=== PATIENT | female | born 1990 | race Caucasian/White ===

== ENCOUNTER → 2018-04-19 15:51 | Outpatient (CLI) | payer MEDICAID, SELFPAY ==
[2018-04-25 07:08] LABS: HPV Reflexed? NOT INDICATED
== END ==
PROVIDERS: Visit Provider Obstetrics & Gynecology
DX: Z12.4 Encounter for screening for malignant neoplasm of cervix (principal)
CPT/HCPCS: 88175; G0145

== ENCOUNTER → 2018-07-25 13:38 | Outpatient (CLI) | payer MEDICAID, SELFPAY ==
[2018-07-25 16:48] LABS: Chlamydia Trachomatis by PCR Negative (Negative); Neisserai gonorrhoeae by PCR Negative (Negative); Probe Check PASS; Sample Adequacy Control PASS; Specimen Processing Control PASS
== END ==
PROVIDERS: Visit Provider Obstetrics & Gynecology
DX: Z11.3 Encounter for screening for infections with a predominantly sexual mode of transmission (principal)
CPT/HCPCS: 87491; 87591

== ENCOUNTER → 2018-08-15 11:49 | Outpatient (CLI) | payer MEDICAID, SELFPAY ==
[2018-08-15 13:41] LABS: Hematocrit 38.6 % (37-47); Hemoglobin 13.1 g/dl (12.0-15.0); Mean Corp Hgb Conc 33.9 g/gl (32-36); Mean Corpuscular Hgb 30.3 pg (27.0-32.0); Mean Corpuscular Volume 89.4 fL (81-99); Mean Platelet Vol. 10.4 fl (6.2-12.0); Platelet Count 248 K/mm3 (150-450); RBC Distribution Width CV 13.1 % (11.6-14.6); RBC Distribution Width SD 42.1 fl (35.1-43.9); Red Blood Count 4.32 M/mm3 (4.2-5.4); White Blood Count 8.1 K/mm3 (4.4-11.0)
[2018-08-15 13:42] LABS: Absolute Lymphocyte Count 1.85 X10^3/ul (0.83-4.51); Absolute Neutrophil Count 5.8 X10^3/uL (2.0-7.7); Basophil# 0.02 X10^3/uL; Basophil% 0.2 % (0-1); Eosinophils% 1.2 % (0-5); Lymphocyte # 1.85 X10^3/ul (4.0); Lymphocyte % 22.8 % (19-41); Monocyte# 0.31 X10^3/uL; Monocyte% 3.8 % (0-10); Neutrophil # 5.81 X10^3/uL (2.7-7.7); Neutrophil % 71.8 % (47-70)
[2018-08-15 13:43] LABS: POSITIVE COUNT NO; POSITIVE DIFFERENTIAL NO; POSITIVE MORPHOLOGY NO
[2018-08-15 13:55] LABS: Color, Urine Yellow (Yellow); Glucose, Dipstick Normal (Normal); Ketone-Dipstick Negative (Negative); Leukocyte Esterase-Dipstick Negative /ul (Negative); Nitrite-Dipstick Negative (Negative); Occult Blood-Urine Negative /ul (Negative); Protein-Dipstick Negative (Negative); Specific Gravity, Urine 1.015 (1.002-1.030); Urine Bilirubin Dipstick Negative (Negative); Urine Clarity Clear (Clear); Urine Urobilinogen Normal (Normal)
[2018-08-15 14:10] LABS: Thyroid Stim Hormone (TSH) 1.24 uIU/mL (0.358-3.74)
[2018-08-15 14:49] LABS: HIV - WCH Non-Reactive (Nonreactive); Rubella IgG 173.6 IU/mL
[2018-08-16 11:20] LABS: Toxoplasma Gondii IgM < 3.0 AU/mL (0.0-7.9)
[2018-08-16 11:21] LABS: HEPATITIS B SURFACE AG Negative (Negative); Hep C Antibodies <0.1 s/co ratio (0.0-0.9); Toxoplasma Gondii IgG < 3.0 IU/mL (0.0-7.1)
[2018-08-18 02:33] LABS: Prenatal RPR NONREACTIVE (NONREACTIVE)
== END ==
PROVIDERS: Visit Provider Obstetrics & Gynecology
DX: Z34.81 Encounter for supervision of other normal pregnancy, first trimester (principal)
CPT/HCPCS: 36415; 81002; 84443; 85025; 86703; 86762; 86777; 86778; 86803; 87340

== ENCOUNTER → 2018-12-19 09:05 | Outpatient (CLI) | payer MEDICAID, OTHER, SELFPAY ==
[2018-12-19 10:42] LABS: Glucose Challenge Gest 1H 50g 74 mg/dL (70-140); Hematocrit 33.2 % (37-47); Hemoglobin 11.1 g/dl (12.0-15.0); Mean Corp Hgb Conc 33.4 g/gl (32-36); Mean Corpuscular Hgb 30.4 pg (27.0-32.0); Mean Platelet Vol. 9.2 fl (6.2-12.0); Platelet Count 195 K/mm3 (150-450); RBC Distribution Width CV 13.6 % (11.6-14.6); RBC Distribution Width SD 44.7 fl (35.1-43.9); Red Blood Count 3.65 M/mm3 (4.2-5.4); White Blood Count 7.3 K/mm3 (4.4-11.0)
[2018-12-19 10:44] LABS: Scan Indicated on CBC? Y/N NO
== END ==
PROVIDERS: Visit Provider Obstetrics & Gynecology
DX: Z34.83 Encounter for supervision of other normal pregnancy, third trimester (principal)
CPT/HCPCS: 36415; 82950; 85027

== ENCOUNTER → 2019-02-13 | Outpatient (CLI) | payer OTHER, MEDICAID, SELFPAY | END | disposition home or self-care (01) | PROVIDERS: Visit Provider Obstetrics & Gynecology | DX: Z36.85 Encounter for antenatal screening for Streptococcus B (principal) | CPT/HCPCS: 87081 ==

== ENCOUNTER 2019-03-08 06:30 | Inpatient (IN) | payer OTHER, MEDICAID, SELFPAY ==
--- NOTE | 2019-03-08 07:31 | PCM.HPOB.BLA ---
History and Physical Date of Admission: 03/08/19 OB HISTORY AND PHYSICAL EXAMINATION History of this : 28 yo female Ab0 with EDC 03/12/2019 by 10 weeks 1 day Ultrasound, presents to Labor and Delivery for elective induction of labor due to maternal discomfort, at 39 3/7 wk EGA. care remarkable for 1.) BREAST PUMP RX GIVEN 01/02/19 2.) Changing cat litter. Encouraged to avoid Pertinent Past Medical History: None Allergies: NKDA Medications: During - Flintstones Complete chewable tablet Review of Systems: Back pain, pelvic pain due to . PHYSICAL EXAMINATION General Appearance: 28 yo female in no acute distress Vital Signs: AF, VSS Heart: RRR without rubs or gallops Lungs: CTA x 2 Breasts: deferred Abdomen: gravid Pelvis: Cervix: 2/75/-2 AROM scant pink dischg noted. Presentation: cephalic Fetus: Size: AGA Movement: present Heart: 140-150s avg variability. Accels to 170s. Irreg UCs q 8 min or so. with irritability also noted. Impression /Plan: Intrauterine . 39 3/7 wk elective induction due to maternal discomfort. Admit. AROM Pitocin Watch progress, and descent. Anticipate . See Progress Notes for Changes: Physician's Signature: Date:
[2019-03-08] MEDS: Oxytocin 30 units/NS 500 ml 30 UNITS/500 ML IV.SOLN IV (07:37)
[2019-03-08] MEDS: Lactated Ringers 1,000 ML 50 ML IV ×3 (07:37→14:26)
[2019-03-08 07:42] VITALS: BMI 25.9
[2019-03-08 07:42] LABS: Absolute Lymphocyte Count 1.61 X10^3/ul (0.83-4.51); Absolute Neutrophil Count 4.2 X10^3/uL (2.0-7.7); Basophil# 0.02 X10^3/uL; Basophil% 0.3 % (0-1); Eosinophil# 0.12 X10^3/uL; Eosinophils% 1.8 % (0-5); Hematocrit 33.3 % (37-47); Lymphocyte # 1.61 X10^3/ul (4.0); Lymphocyte % 24.4 % (19-41); Mean Corpuscular Hgb 28.6 pg (27.0-32.0); Mean Corpuscular Volume 86.7 fL (81-99); Mean Platelet Vol. 8.9 fl (6.2-12.0); Monocyte# 0.64 X10^3/uL; Monocyte% 9.7 % (0-10); Neutrophil # 4.19 X10^3/uL (2.7-7.7); Neutrophil % 63.6 % (47-70); Platelet Count 177 K/mm3 (150-450); RBC Distribution Width CV 13.8 % (11.6-14.6); RBC Distribution Width SD 43.7 fl (35.1-43.9); Red Blood Count 3.84 M/mm3 (4.2-5.4); White Blood Count 6.6 K/mm3 (4.4-11.0)
[2019-03-08 07:43] LABS: POSITIVE COUNT NO; POSITIVE DIFFERENTIAL NO; POSITIVE MORPHOLOGY NO
[2019-03-08] MEDS: Amnioinfusion- 0.9% NS 1,000 ML IV.SOLN. 1000 ML INTRA-UTER (11:49)
[2019-03-08] MEDS: fentaNYL-bupivacaine (epidural) 100 ML BAG EPIDURAL (12:19)
--- NOTE | 2019-03-08 12:58 | PCM.PN.BLA ---
Progress Note LABOR PROGRESS NOTE Comfortable w/ epidural but feeling some tingling in hands, head Anesthesia working with epidural re this. AVSS Pitocin at 6 mIU/min IFM: 130-140s avg variability. Accels to 160-170s Deep variable decelerations noted prior, resolved with amnioinfusion. UCs q 3- 4mins 3 cm / 80 at last check per RN when IUPC placed. Scalp lead on also. A/P: 39 3/7 wk EGA induction for maternal discomfort. Continue Pitocin. Watch progress, descent.
[2019-03-08] MEDS: Oxytocin 30 units/NS 500 ml 30 UNITS/500 ML IV.SOLN 334 UNITS IV (17:11)
--- NOTE | 2019-03-08 17:17 | PCM.OPRPT ---
Vaginal Delivery Maternal Presentation: Elective Induction 39 3/7 wk EGA induction for maternal discomfort Method of Induction: Pitocin, Amniotomy Amniotic Membrane Rupture Type: Artificial Amniotic Fluid Description: Clear Final LEE: 03/12/19 Gestational age: 39 Weeks and 4 Days Date of Procedure: 03/08/19 Pre-Operative Diagnosis: 39 3/7 wk induction Post-Operative Diagnosis: same Surgery/ Procedure Performed: Vacuum Assisted Vaginal Delivery - -2 station ROP Epidural in place, Capps in place, Full dilation. Vacuum 2/2 deep variable decelerations, bradycardia with pushing. Type of Anesthesia: Epidural Description of Procedure: Fully dilated with deep variable decelerations, bradycardia and intermittent return. Pushing with same pattern. Capps in place, comfortable with epidural. -2 Station. OP. Kiwi vacuum applied . three pulls into green zone and one pop off in the three resulted in delivery of VTX ROP. OP and nares bulb suctioned. Shoulders delivered easily, with cord around body loosely and around legs loosely, reduced at delivery to maternal abdomen with spont vigorous cry. Cored clamped x two and cut. epps viable female Routine venous cord gas collected. PP exam; 2nd deg vaginal and perineal laceration repaired to hemostatic, intact with 3-0 Vicryl. No other lacerations noted Placenta delivered by spont expulsion, expression 3V cord, normal appearing and intact with trailing membranes. Clots then evacuated from upper vagina Pt and tolerated delivery well. To recovery ,s table condition Ray Jihan and needle counts correct times two EBL 400 cc Presentation: Vertex, ROP Placental Delivery Description: Spontaneous, Expressed Placenta Disposition: [facility] Cord Vessel Description: 3 Vessels Cord Gases drawn per routine: VBG Cord Entanglement: None - around body loose and around legs. Drain: Capps to straight drain Estimated Blood Loss: 400 Infant A gender: Female (1 minute): 9 (5 minute): 9 Episiotomy Description: None Laceration: Midline, Perineal Extension/lac, Vaginal Extension/lac, 2nd degree Medications given after delivery: IV Pitocin Complications: None
[2019-03-08] MEDS: Oxytocin 30 units/NS 500 ml 30 UNITS/500 ML IV.SOLN 167 UNITS IV (17:41)
[2019-03-08] MEDS: 0.9% Saline Lock 10 ML Syringe IV (18:47)
[2019-03-08 19:48] VITALS: BP 120/76; PULSE 106; RESP 18; TEMP 37.6
[2019-03-08 23:47] VITALS: BP 114/72; PULSE 98; RESP 16; TEMP 36.8
[2019-03-09 04:00] VITALS: BP 122/71; PULSE 98; RESP 15; TEMP 36.4
[2019-03-09 08:00] VITALS: BP 112/75; PULSE 100; RESP 18; TEMP 36.3
--- NOTE | 2019-03-09 08:22 | PCM.PN.OB ---
Subjective: PPD#1 vaginal delivery Doing well. - Physical Exam General: Alert, Oriented x3, Cooperative, No apparent distress HEENT: Atraumatic Neck: Supple Neurological: Cranial nerves II-XII grossly intact Psych/Mental Status: Normal Affect Vital Signs Temp Pulse Resp BP 97.5 F L 98 15 122/71 H 03/09/19 04:00 03/09/19 04:00 03/09/19 04:00 03/09/19 04:00 Oxygen Delivery Method Room Air Weight: 60.328 kg Body Mass Index (BMI) 25.9 Intake and Output for Last 24 Hours 03/07/19 03/08/19 03/09/19 23:59 23:59 23:59 Output Total 1200 / 1200 Balance -1200 / -1200 Laboratory Tests Past 24 Hrs 03/08/19 07:30 Blood Type A POSITIVE Antibody Screen NEGATIVE Medical Necessity - Tobacco Use Smoking Status: Never smoker Assessment/Plan PPD#1 Vaginal delivery. Feeling well. would like to go home later today if baby is released. RTO in 6 wk for pp check. , prn sooner.
--- NOTE | 2019-03-09 08:24 | DCINST_ITS ---
Discharge Diet: No Restrictions Discharge Activity: May Shower, May Take a Tub Bath May resume sexual activity in: 4-6 weeks Additional Activity Instructions:: Nothing in the vagina for 4-6 weeks. You may return to work/school in 6 weeks. Additional Instructions: If you experience any of the following, contact your healthcare provider. * Bleeding that soaks a pad every hour for 2 hours * Fever 100.4 or higher * Unrelieved abdominal pain * Problems urinating (including inability to urinate or burning while urinating). * Visual changes * Severe headache * Flu-like symptoms * Pain or redness in one of both of your breasts * Pain, warmth, tenderness or swelling in your legs, especially the calf area * Frequent nausea and vomiting * Symptoms of depression or anxiety If you experience any of the following, call 911 or go to the nearest Emergency Room. * Chest pain * Problems breathing * Seizure activity * Partial or complete paralysis of a body part, slurred speech, weakness or drooping of the face, or a sudden inability to walk or hold your balance Allergies/Adverse Reactions: Allergies No Known Allergies Allergy (Verified 06/21/14 02:27) Medications to take at Discharge Ped Multivit 43/Iron Fumarate [Flintstones Complete Chew Tab] 36 mg PO DAILY 03/08/19 Please Follow Up With: Jennifer Ardon MD - [phone] When: Call to make an appointment with your doctor in 6 weeks. Primary Care Physician: Care Physician,No Primary [Primary Care Provider] - Test Results: Test results from this visit will be discussed in further detail at your follow- up appointment, if applicable. Proposed Discharge Date: 03/09/19
--- NOTE | 2019-03-09 08:24 | PCM.DCVAG ---
Discharge Diet: No Restrictions Discharge Activity: May Shower, May Take a Tub Bath May resume sexual activity in: 4-6 weeks Additional Activity Instructions:: Nothing in the vagina for 4-6 weeks. You may return to work/school in 6 weeks. Additional Instructions: If you experience any of the following, contact your healthcare provider. Bleeding that soaks a pad every hour for 2 hours Fever 100.4 or higher Unrelieved abdominal pain Problems urinating (including inability to urinate or burning while urinating). Visual changes Severe headache Flu-like symptoms Pain or redness in one of both of your breasts Pain, warmth, tenderness or swelling in your legs, especially the calf area Frequent nausea and vomiting Symptoms of depression or anxiety If you experience any of the following, call 911 or go to the nearest Emergency Room. Chest pain Problems breathing Seizure activity Partial or complete paralysis of a body part, slurred speech, weakness or drooping of the face, or a sudden inability to walk or hold your balance Allergies/Adverse Reactions: Allergies No Known Allergies Allergy (Verified 06/21/14 02:27) Medications to take at Discharge Ped Multivit 43/Iron Fumarate [Flintstones Complete Chew Tab] 36 mg PO DAILY 03/08/19 Please Follow Up With: Jennifer Ardon MD - [phone] When: Call to make an appointment with your doctor in 6 weeks. Primary Care Physician: Care Physician,No Primary [Primary Care Provider] - Test Results: Test results from this visit will be discussed in further detail at your follow-up appointment, if applicable. Proposed Discharge Date: 03/09/19
[2019-03-09 14:00] VITALS: BP 114/76; PULSE 91; RESP 16; TEMP 36.1; O2SAT 98
[2019-03-09] MEDS: Multivitamins,Therapeutic Tablet 1 TABLET PO (14:08)
[2019-03-09 18:30] VITALS: BP 114/72; PULSE 95; RESP 16; TEMP 36.1
== END 2019-03-09 19:00 | disposition home or self-care (01) | DRG 807 ==
PROVIDERS: Admitting Provider Obstetrics & Gynecology; Referring Provider Obstetrics & Gynecology; Visit Provider Obstetrics & Gynecology
DX: O76 Abnormality in fetal heart rate and rhythm complicating labor and delivery (principal); O70.1 Second degree perineal laceration during delivery; Z37.0 Single live birth; Z3A.39 39 weeks gestation of pregnancy
CPT/HCPCS: 59025; 59050; 85025; 86850; 86900; 99218; J7030; J7120; A4216; G0378

== ENCOUNTER → 2019-06-28 09:38 | Outpatient (CLI) | payer OTHER, SELFPAY ==
[2019-06-28 10:53] LABS: Hematocrit 43.1 % (37-47); Hemoglobin 14.2 g/dL (12.0-15.0); Mean Corp Hgb Conc 32.9 g/dL (32-36); Mean Corpuscular Hgb 29.3 pg (27.0-32.0); Mean Platelet Vol. 10.3 fl (6.2-12.0); Platelet Count 235 K/mm3 (150-450); RBC Distribution Width CV 13.7 % (11.6-14.6); RBC Distribution Width SD 44.6 fl (35.1-43.9); Red Blood Count 4.84 M/mm3 (4.2-5.4); White Blood Count 6.4 K/mm3 (4.4-11.0)
[2019-06-28 11:25] LABS: Thyroid Stim Hormone (TSH) 1.05 uIU/mL (0.358-3.74)
== END ==
PROVIDERS: Visit Provider Obstetrics & Gynecology
DX: N92.6 Irregular menstruation, unspecified (principal)
CPT/HCPCS: 36415; 84443; 85027

== ENCOUNTER → 2022-07-02 | Outpatient (CLI) | payer BC, SELFPAY ==
[2022-07-02 13:28] LABS: Prolactin 7.3 ng/mL
[2022-07-30 17:02] LABS: HPV APTIMA, High Risk Negative
== END | disposition home or self-care (01) ==
LOC: WOBLAB 11:41
PROVIDERS: Visit Provider Student in an Organized Health Care Education/Training Program
DX: N64.52 Nipple discharge (principal); Z12.4 Encounter for screening for malignant neoplasm of cervix
CPT/HCPCS: 36415; 84146; 87624; 88175; G0145

== ENCOUNTER → 2022-07-16 | Outpatient (CLI) | payer BC, SELFPAY ==
--- NOTE | 2022-07-16 09:13 | US_ITS ---
STUDY: ULTRASOUND BREAST - RIGHT REASON FOR EXAM: Female, 32 years old. Nipple discharge. TECHNIQUE: Axial and longitudinal images of the RIGHT breast were performed with a high resolution ultrasound transducer. # OF IMAGES: 24 COMPARISON: Comparison is made with prior mammogram done earlier today. FINDINGS: RIGHT Breast: The periareolar and retroareolar region of the breast was examined with ultrasound. There is evidence of a dilated ducts. No solid or cystic mass lesion is seen. There is inversion of the nipple. Clinical correlation is recommended. US/Breast Limited Unilateral IMPRESSION: Right nipple inversion. Dilated subareolar ducts. Clinical correlation is recommended. ASSESSMENT CATEGORY: BIRADS Category 2: Benign. A letter regarding these results will be sent to the patient by the facility within 30 days. Electronically Signed: Dipak Nur MD at 13:53 EDT ,
--- NOTE | 2022-07-16 09:13 | BI_ITS ---
MAMMOGRAPHY - BILATERAL DIAGNOSTIC REASON FOR EXAM: Female, 32 years old. Right milky discharge. PERTINENT HISTORY: Non-contributory. TECHNIQUE: Digital bilateral breast john (3D mammographic acquisition) in the CC and MLO projections. 2-D mediolateral oblique (MLO) and craniocaudad (CC) views of both breasts were obtained. CAD: Full Field Digital Mammography with Computer Added Detection was performed. COMPARISON: None. Baseline examination. FINDINGS: Breast Composition: The breasts are extremely dense, which lowers the sensitivity of mammography. There are no dominant masses or suspicious calcifications. No other significant abnormalities are identified. BI/DIAG MAMM W/CAD, BILAT IMPRESSION: Negative diagnostic mammogram. With the patient''s history of a right breast discharge, correlation with targeted ultrasound examination of the right breast is recommended. ASSESSMENT CATEGORY: BIRADS Category 0: Incomplete. Need additional imaging evaluation. A letter regarding these results will be sent to the patient by the facility within 30 days. Approximately 10% of breast cancers are not detected by mammography. A normal mammogram should not delay biopsy of a clinically suspicious abnormality. Electronically Signed: Dipak Nur MD at 10:12 EDT ,
== END | disposition home or self-care (01) ==
LOC: OPUS 09:11
PROVIDERS: Referring Provider Student in an Organized Health Care Education/Training Program; Visit Provider Student in an Organized Health Care Education/Training Program
DX: N64.59 Other signs and symptoms in breast (principal); N64.52 Nipple discharge
CPT/HCPCS: 76642; 77062; 77066; G0279

== ENCOUNTER → 2023-02-15 | Outpatient (CLI) | payer BC, SELFPAY ==
--- NOTE | 2023-02-15 11:30 | MRI_ITS ---
STUDY: BILATERAL BREAST MR WITHOUT AND WITH CONTRAST REASON FOR EXAM: Female, 32 years old. Family Hx of breast cancer, nipple discharge and inverted nipple. TECHNIQUE: Multi-sequence multi-echo imaging of both breasts was performed with a dedicated breast coil. T1-weighted and T2-weighted images were performed before the administration of contrast. T1-weighted images were also performed after the intravenous administration of 9 ml of Clariscan. COMPARISON: Bilateral mammogram and right breast ultrasound dated July 16, 2022. FINDINGS: RIGHT BREAST: Dense fibroglandular breast tissue. No abnormal enhancing masses or areas of non-mass enhancement in the right breast. LEFT BREAST: Dense fibroglandular tissue. No abnormal enhancing masses or areas of non-mass enhancement in the left breast. No enlarged or abnormal lymph nodes. No abnormality in the visualized regions of the chest or liver. MRI/Breast Bilateral W/O and W IMPRESSION: No abnormality on breast MRI with contrast. Yearly follow-up screening mammogram recommended. Because of the family history, alternating screening mammogram with breast MRI with contrast is an alternative to just yearly screening mammography. CATEGORY: BIRADS Category 2: Benign. A letter regarding these results will be sent to the patient by the facility within 30 days. Electronically Signed: Kevin Travis MD at 14:42 EDT ,
== END | disposition home or self-care (01) ==
PROVIDERS: Referring Provider Obstetrics & Gynecology; Visit Provider Obstetrics & Gynecology
DX: N64.53 Retraction of nipple (principal); Z80.3 Family history of malignant neoplasm of breast; N64.52 Nipple discharge
CPT/HCPCS: 77049; A9575; A4216; C8908

== ENCOUNTER → 2024-01-23 | Outpatient (CLI) | payer BC, SELFPAY ==
[2024-01-23 22:26] LABS: Absolute Lymphocyte Count 2.33 X10^3/uL (0.83-4.51); Absolute Neutrophil Count 3.7 X10^3/uL (2.0-7.7); Basophil# 0.02 X10^3/uL; Basophil% 0.3 % (0-1); Eosinophil# 0.12 X10^3/uL; Eosinophils% 1.8 % (0-5); Hematocrit 40.8 % (37-47); Hemoglobin 13.5 g/dL (12.0-15.0); Lymphocyte # 2.33 X10^3/ul (0.83-4.51); Mean Corp Hgb Conc 33.1 g/dL (32-36); Mean Corpuscular Hgb 30.3 pg (27.0-32.0); Mean Corpuscular Volume 91.5 fL (81-99); Mean Platelet Vol. 10.9 fl (6.2-12.0); Monocyte# 0.48 X10^3/uL; Monocyte% 7.2 % (0-10); NRBC Flagged by Analyzer 0 % (0-5); Neutrophil % 55.5 % (47-70); Platelet Count 245 K/mm3 (150-450); RBC Distribution Width CV 12.9 % (11.6-14.6); RBC Distribution Width SD 42.7 fl (35.1-43.9); Red Blood Count 4.46 M/mm3 (4.2-5.4); White Blood Count 6.7 K/mm3 (4.4-11.0)
[2024-01-23 22:45] LABS: ALB/GLOB Ratio 1.1 RATIO (0.9-2.4); AST(SGOT) 18 U/L (15-37); Alanine Aminotransfer ALT/SGPT 21 U/L (13-56); Albumin, Serum 3.9 g/dL (3.2-5.0); Alkaline Phosphatase 54 U/L (45-117); Anion Gap 6 (5-15); BUN 13 mg/dL (7-18); BUN/Creat Ratio 14.9 RATIO (10-20); Calcium,Total 9.1 mg/dL (8.5-10.1); Chloride 108 mmol/L (98-107); Creatinine, Serum 0.87 mg/dL (0.55-1.02); EST Glomerular Filtration Rate 79 mL/min (>60); Est Glom Filt Rate - Afr Amer 95 mL/min (>60); Globulin 3.6 g/dL (2.2-4.2); Glucose 84 mg/dL (74-106); Potassium 3.8 mmol/L (3.5-5.1); Protein, Total 7.5 g/dL (6.4-8.2); Sodium Level 140 mmol/L (136-145); Thyroid Stim Hormone (TSH) 2.05 uIU/mL (0.358-3.74)
== END | disposition home or self-care (01) ==
PROVIDERS: Referring Provider Nurse Practitioner; Visit Provider Nurse Practitioner
DX: F41.9 Anxiety disorder, unspecified (principal); G47.00 Insomnia, unspecified
CPT/HCPCS: 80053; 84443; 85025